=== PATIENT | male | born 1965 | race Caucasian/White ===

== ENCOUNTER 2021-04-20 13:21 | Emergency (ER) | payer MEDICAID ==
[~2021-04-20] VITALS: Ht 175.3 cm; Wt 83.0 kg
[2021-04-20 13:31] VITALS: BP 120/91
[2021-04-20 14:50] LABS: BASOPHILS % 0.4 % (0.0-2.0); EOSINOPHILS % 3.4 % (0.0-5.0); HEMATOCRIT. 51.4 % (42.0-52.0); HEMOGLOBIN. 17.7 g/dL (14.0-18.0); LYMPHOCYTES % 29.8 % (20.0-50.0); MEAN CORPUSCULAR HEMOGLOBIN 29.4 pg (28.0-32.0); MEAN CORPUSCULAR VOLUME 85.3 fL (80.0-94.0); MEAN PLATELET VOLUME 6.8 fl (7.4-10.4); MONOCYTES % 7.1 % (2.0-8.0); NEUTROPHILS % 59.3 % (40.0-76.0); PLATELET 335 x1000/uL (130-400); RED BLOOD CELL COUNT 6.02 mill/uL (4.7-6.1); RED CELL DISTRIBUTION WIDTH 13.4 % (11.6-14.6)
[2021-04-20 14:55] LABS: CHLORIDE 104 mEq/L (98-107)
[2021-04-20] MEDS ORDERED: IOHEXOL-300 100 ML BOTTLE ONE (18:02)
== END 2021-04-20 18:35 | disposition home or self-care (01) ==
LOC: ER 13:21
DX: E07.9 Disorder of thyroid, unspecified (principal); Z98.890 Other specified postprocedural states
CPT/HCPCS: 36415; 70491; 80053; 84443; 85025; 99285; Q9967